=== PATIENT | female | born 1945 | race Caucasian/White ===

== ENCOUNTER 2016-11-05 18:10 | Inpatient (IN) | payer OTHER ==
[~2016-11-05] VITALS: Ht 177.8 cm; Wt 68.0 kg
[2016-11-05 18:10] VITALS: BP 103/61; PULSE 92; RESP 19; TEMP 98.2; O2SAT 92
[~2016-11-05 18:10] MED LIST: IPRA12.94 INH; LEVA15HF5 INH; TIOT18CA3 IH
[2016-11-05] MEDS ORDERED: ALBUTEROL SULFATE 0.083% 2.5 MG/3 ML VIAL.NEB INH PRN (18:30)
[2016-11-05] MEDS ORDERED: LEVOFLOXACIN 500 MG/D5W 100 ML IV ONE (18:30)
[2016-11-05] MEDS ORDERED: IPRATROPIUM BROM 0.5 MG/2.5 ML VIAL.NEB (ATROVENT) INH ONE (18:30)
[2016-11-05] MEDS ORDERED: methylPREDNISolone SOD SUCC/PF 62.5 MG/ML VIAL IVP ONE (18:30)
[2016-11-05 18:54] LABS: BASOPHILS # (AUTO) 0.2 K/uL (0.0-0.2); BASOPHILS % (AUTO) 2.3 % (0.0-2.0); EOSINOPHILS # (AUTO) 0.1 K/uL (0.0-0.4); EOSINOPHILS % (AUTO) 0.7 % (0.0-4.0); HEMATOCRIT 40.7 % (36-48); HEMOGLOBIN 13.5 g/dL (12.0-16.0); LYMPHOCYTES % (AUTO) 12.6 % (20.5-51.5); MEAN CORPUSCULAR HEMOGLOBIN 31 pg (27-31); MEAN CORPUSCULAR HGB CONC 33 % (32-36); MEAN CORPUSCULAR VOLUME 92 fL (79.0-98.0); MONOCYTES # (AUTO) 0.7 K/uL (0.0-1.0); MONOCYTES % (AUTO) 9.7 % (1.7-9.3); NEUTROPHILS # (AUTO) 5.6 K/uL (1.8-7.7); NEUTROPHILS % (AUTO) 74.7 % (40.0-70.0); PLATELET COUNT (AUTO) 420 K/uL (130-430); RED BLOOD CELL COUNT(AUTO) 4.41 MIL/uL (4.2-6.2); RED CELL DISTRIBUTION WIDTH 13.5 % (9.0-15.0); WHITE BLOOD COUNT (AUTO) 7.6 K/uL (4.8-10.8)
[2016-11-05 18:58] LABS: CALCIUM 8.4 mg/dL (8.4-11.0); CHLORIDE 94 mmol/L (98-107); CREATININE 0.61 mg/dL (0.55-1.30); GLUCOSE 131 mg/dL (70-99); POTASSIUM 4.2 mmol/L (3.5-5.1); SODIUM SERUM 133 mmol/L (136-145); UREA NITROGEN, BLOOD 8 mg/dL (8-21)
[2016-11-05 19:00] LABS: ANION GAP < 3 (5-15); INR 0.9 (0.8-1.2); PROTHROMBIN TIME 10.2 SECS (9.5-12.5)
[2016-11-05 19:03] LABS: ALANINE AMINOTRANSFERASE 26 U/L (12-78); ALBUMIN 2.8 g/dL (3.4-4.8); ASPARTATE AMINOTRANSFERASE 22 U/L (10-37); TOTAL BILIRUBIN 0.2 mg/dL (0.0-1.0); TOTAL PROTEIN, SERUM 7.1 g/dL (6.4-8.3)
[2016-11-05] MEDS: ALBUTEROL SULFATE 0.083% 2.5 MG/3 ML VIAL.NEB INH SCH ×2 (19:23→22:00)
[2016-11-05 20:21] LABS: BILIRUBIN,URINE NEGATIVE (NEGATIVE); BLOOD, URINE NEGATIVE (NEGATIVE); CLARITY/URINE CLEAR (CLEAR); COLOR,URINE YELLOW (YELLOW); GLUCOSE,URINE NEGATIVE (NEGATIVE); KETONES,URINE NEGATIVE (NEGATIVE); NITRITE, URINE NEGATIVE (NEGATIVE); PH,URINE 8.5 (5.0-8.0); PROTEIN URINE NEGATIVE (NEGATIVE); UROBILINOGEN,URINE 0.2 (0.2-1.0)
[2016-11-05 20:30] LABS: LEUKOCYTE ESTERASE ,URINE TRACE (NEGATIVE)
[2016-11-05] MEDS ORDERED: PREDNISONE 20 MG TABLET PO ONE (20:30)
[2016-11-05 20:32] LABS: BACTERIA,URINE FEW /HPF (None Seen); MUCUS,URINE None Seen /LPF (None Seen); RBC,URINE NONE SEEN /HPF (0-3)
[2016-11-05] MEDS ORDERED: DIPHENHYDRAMINE INJ 50 MG/ML VIAL IVP ONE (20:45)
[2016-11-05] MEDS ORDERED: ONDANSETRON HCL 4 MG/2 ML VIAL IVP ONE (21:30)
[2016-11-05 21:39] LABS: BLOOD GAS PH 7.414 (7.350-7.450)
[2016-11-05 21:41] LABS: ABG TOTAL HEMOGLOBIN 14.7 G/dL (12.0-18.0); BLOOD GAS BASE EXCESS 8.9 mmol/L (-3.0-3.0); BLOOD GAS COHb% 1.1 % (0.5-1.5); BLOOD GAS HHB 6.7 % (0.0-6.0)
[2016-11-05] MEDS ORDERED: LEVALBUTEROL Tartrate 15 GM HFA. 45 mCg/Actuation INH PRN (22:00)
[2016-11-05 22:42] VITALS: BP 122/64; PULSE 102; RESP 16; TEMP 97.8; O2SAT 90
[2016-11-05] MEDS ORDERED: ALBUTEROL SULFATE 0.083% 2.5 MG/3 ML VIAL.NEB INH SCH (23:00)
[2016-11-05] MEDS ORDERED: LEVALBUTEROL HCL 0.63 MG/3 ML VIAL.NEB INH SCH (23:00)
[2016-11-05] MEDS: methylPREDNISolone SOD SUCC 40 MG/ML VIAL IVP SCH (23:58)
[2016-11-06] VITALS (7 sets, daily range): BP systolic 129–152; BP diastolic 68–82; PULSE 88–102; RESP 18–22; TEMP 97.9–99; O2SAT 83–99
[2016-11-06 05:42] LABS: HEMATOCRIT 40.5 % (36-48); HEMOGLOBIN 13.4 g/dL (12.0-16.0); LYMPHOCYTES # (AUTO) 0.2 K/uL (1.0-5.5); LYMPHOCYTES % (AUTO) 5.3 % (20.5-51.5); MEAN CORPUSCULAR HEMOGLOBIN 31 pg (27-31); MEAN CORPUSCULAR HGB CONC 33 % (32-36); MEAN CORPUSCULAR VOLUME 93 fL (79.0-98.0); NEUTROPHILS # (AUTO) 4.2 K/uL (1.8-7.7); NEUTROPHILS % (AUTO) 93.7 % (40.0-70.0); PLATELET COUNT (AUTO) 408 K/uL (130-430); RED BLOOD CELL COUNT(AUTO) 4.36 MIL/uL (4.2-6.2); RED CELL DISTRIBUTION WIDTH 13.6 % (9.0-15.0); WHITE BLOOD COUNT (AUTO) 4.4 K/uL (4.8-10.8)
[2016-11-06 05:58] LABS: ALANINE AMINOTRANSFERASE 26 U/L (12-78); ALBUMIN 2.6 g/dL (3.4-4.8); ANION GAP 2 (5-15); ASPARTATE AMINOTRANSFERASE 19 U/L (10-37); CALCIUM 8.6 mg/dL (8.4-11.0); CHLORIDE 95 mmol/L (98-107); GLUCOSE 197 mg/dL (70-99); POTASSIUM 4.3 mmol/L (3.5-5.1); SODIUM SERUM 135 mmol/L (136-145); TOTAL BILIRUBIN 0.2 mg/dL (0.0-1.0); TOTAL PROTEIN, SERUM 7.1 g/dL (6.4-8.3); UREA NITROGEN, BLOOD 6 mg/dL (8-21)
[2016-11-06] MEDS: methylPREDNISolone SOD SUCC 40 MG/ML VIAL IVP SCH ×2 (06:35→12:15)
[2016-11-06] MEDS: IPRATROPIUM BROM 0.5 MG/2.5 ML VIAL.NEB (ATROVENT) INH SCH ×5 (07:15→22:18)
[2016-11-06] MEDS ORDERED: TIOTROPIUM BROMIDE 18 mcg/INHALATION (CAPSULE) IH SCH (09:00)
[2016-11-06] MEDS ORDERED: DIPHENHYDRAMINE INJ 50 MG/ML VIAL ONE (10:49)
[2016-11-06] MEDS ORDERED: ALBUTEROL SULFATE 0.083% 2.5 MG/3 ML VIAL.NEB INH SCH (11:15)
[2016-11-06] MEDS ORDERED: ALBUTEROL SULFATE 0.083% 2.5 MG/3 ML VIAL.NEB INH PRN (11:15)
[2016-11-06] MEDS ORDERED: IPRATROPIUM BROM 0.5 MG/2.5 ML VIAL.NEB (ATROVENT) INH PRN (11:15)
[2016-11-06] MEDS ORDERED: IPRATROPIUM BROM 0.5 MG/2.5 ML VIAL.NEB (ATROVENT) INH SCH (11:15)
[2016-11-06] MEDS: DIPHENHYDRAMINE INJ 50 MG/ML VIAL IVP SCH (12:15)
[2016-11-06] MEDS ORDERED: THYROID 30 MG TABLET PO ONE (12:15)
[2016-11-06 12:20] LABS: BLOOD GAS PH 7.403 (7.350-7.450)
[2016-11-06 12:21] LABS: ABG TOTAL HEMOGLOBIN 14.4 G/dL (12.0-18.0)
[2016-11-06 12:22] LABS: BLOOD GAS COHb% 0.7 % (0.5-1.5); BLOOD GAS HHB 14.9 % (0.0-6.0); BLOOD O2Hb% 83.9 % (94.0-97.0)
[2016-11-06] MEDS: LEVOFLOXACIN 500 MG/D5W 100 ML IV SCH (13:11)
[2016-11-06] MEDS: ALBUTEROL SULFATE 0.083% 2.5 MG/3 ML VIAL.NEB INH SCH ×3 (15:19→22:18)
[2016-11-06] MEDS: MAG-AL HYDROX/SIMETH 30 ML UDC PO PRN (15:50)
[2016-11-06] MEDS: SUCRALFATE 1 GM TABLET PO SCH ×2 (17:32→21:01)
[2016-11-06] MEDS ORDERED: ONDANSETRON HCL 4 MG/2 ML VIAL IVP ONE (20:15)
[2016-11-06] MEDS: PANTOPRAZOLE SODIUM 40 MG TAB PO SCH (20:29)
[2016-11-06] MEDS: LACTOBACILLUS RHAMNOSUS GG 1 CAP CAPSULE PO SCH (21:01)
[2016-11-07] MEDS: MAG-AL HYDROX/SIMETH 30 ML UDC PO PRN ×3 (00:02→23:54)
[2016-11-07] MEDS: HYDROcodone/ACETAMIN 5-325 MG TAB (NORCO/ VICODIN) PO PRN ×2 (00:31→15:19)
[2016-11-07 01:10] VITALS: BP 139/60; PULSE 89; RESP 20; TEMP 98.8; O2SAT 90
[2016-11-07] MEDS: methylPREDNISolone SOD SUCC 40 MG/ML VIAL IVP SCH ×3 (01:42→12:09)
[2016-11-07] MEDS: ACETAMINOPHEN 500 MG TABLET PO PRN (02:35)
[2016-11-07] MEDS: ALBUTEROL SULFATE 0.083% 2.5 MG/3 ML VIAL.NEB INH SCH ×6 (03:31→23:15)
[2016-11-07] MEDS: IPRATROPIUM BROM 0.5 MG/2.5 ML VIAL.NEB (ATROVENT) INH SCH ×6 (03:32→23:15)
[2016-11-07 04:33] VITALS: BP 132/63; PULSE 83; RESP 20; TEMP 98.8; O2SAT 98
[2016-11-07] MEDS: THYROID 30 MG TABLET PO SCH ×2 (06:09→06:14)
[2016-11-07] MEDS: SUCRALFATE 1 GM TABLET PO SCH ×4 (06:10→21:13)
[2016-11-07 06:44] LABS: BASOPHILS % (AUTO) 0.1 % (0.0-2.0); HEMATOCRIT 39.3 % (36-48); LYMPHOCYTES # (AUTO) 0.6 K/uL (1.0-5.5); LYMPHOCYTES % (AUTO) 6.2 % (20.5-51.5); MEAN CORPUSCULAR HEMOGLOBIN 31 pg (27-31); MEAN CORPUSCULAR HGB CONC 33 % (32-36); MEAN CORPUSCULAR VOLUME 93 fL (79.0-98.0); MONOCYTES # (AUTO) 0.6 K/uL (0.0-1.0); MONOCYTES % (AUTO) 5.7 % (1.7-9.3); NEUTROPHILS # (AUTO) 8.7 K/uL (1.8-7.7); PLATELET COUNT (AUTO) 445 K/uL (130-430); RED BLOOD CELL COUNT(AUTO) 4.22 MIL/uL (4.2-6.2); RED CELL DISTRIBUTION WIDTH 13.2 % (9.0-15.0); WHITE BLOOD COUNT (AUTO) 9.9 K/uL (4.8-10.8)
[2016-11-07 07:22] LABS: ANION GAP 2 (5-15); CALCIUM 8.8 mg/dL (8.4-11.0); CHLORIDE 97 mmol/L (98-107); CREATININE 0.65 mg/dL (0.55-1.30); FREE T4 (FREE THYROXINE) 0.4 ng/dL (0.6-1.6); GLUCOSE 137 mg/dL (70-99); POTASSIUM 4.2 mmol/L (3.5-5.1); SODIUM SERUM 139 mmol/L (136-145); THYROID STIMULATING HORMONE 0.69 uIu/mL (0.34-4.82); UREA NITROGEN, BLOOD 11 mg/dL (8-21)
[2016-11-07 07:30] VITALS: BP 140/74; PULSE 88; RESP 16; TEMP 98.6; O2SAT 98
[2016-11-07] MEDS: PANTOPRAZOLE SODIUM 40 MG TAB PO SCH ×2 (08:27→21:00)
[2016-11-07] MEDS: LACTOBACILLUS RHAMNOSUS GG 1 CAP CAPSULE PO SCH ×2 (08:28→21:00)
[2016-11-07] MEDS: DIPHENHYDRAMINE INJ 50 MG/ML VIAL IVP SCH (08:29)
[2016-11-07] MEDS: ALBUTEROL SULFATE 0.083% 2.5 MG/3 ML VIAL.NEB INH PRN (09:49)
[2016-11-07 12:02] VITALS: BP 113/75; PULSE 65; RESP 20; TEMP 97.1; O2SAT 97
[2016-11-07] MEDS: LEVOFLOXACIN 500 MG/D5W 100 ML IV SCH (12:10)
[2016-11-07] MEDS ORDERED: DIPHENHYDRAMINE INJ 50 MG/ML VIAL IVP ONE (12:45)
[2016-11-07] MEDS: ONDANSETRON HCL 4 MG/2 ML VIAL IVP PRN (14:51)
[2016-11-07] MEDS ORDERED: BACLOFEN 10 MG TABLET PO PRN (16:30)
[2016-11-07 16:31] VITALS: BP 141/64; PULSE 92; RESP 22; TEMP 98.3; O2SAT 90
[2016-11-07] MEDS: methylPREDNISolone SOD SUCC/PF 62.5 MG/ML VIAL IVP SCH (17:48)
[2016-11-07 20:00] VITALS: BP 146/73; PULSE 90; RESP 20; TEMP 97.3; O2SAT 87
[2016-11-08] MEDS: HYDROcodone/ACETAMIN 5-325 MG TAB (NORCO/ VICODIN) PO PRN ×2 (00:23→12:35)
[2016-11-08] MEDS: IPRATROPIUM BROM 0.5 MG/2.5 ML VIAL.NEB (ATROVENT) INH SCH ×5 (03:30→19:47)
[2016-11-08] MEDS: ALBUTEROL SULFATE 0.083% 2.5 MG/3 ML VIAL.NEB INH SCH ×5 (03:30→19:47)
[2016-11-08] MEDS: ACETAMINOPHEN 500 MG TABLET PO PRN (04:02)
[2016-11-08 05:52] VITALS: BP 146/79; PULSE 91; RESP 22; TEMP 98; O2SAT 87
[2016-11-08] MEDS: methylPREDNISolone SOD SUCC/PF 62.5 MG/ML VIAL IVP SCH ×5 (06:00→23:20)
[2016-11-08] MEDS: MAG-AL HYDROX/SIMETH 30 ML UDC PO PRN ×2 (06:25→12:35)
[2016-11-08] MEDS: SUCRALFATE 1 GM TABLET PO SCH ×4 (06:27→20:40)
[2016-11-08] MEDS: THYROID 30 MG TABLET PO SCH (06:28)
[2016-11-08 08:00] VITALS: BP 146/68; PULSE 97; RESP 18; TEMP 98.8; O2SAT 88
[2016-11-08] MEDS: PANTOPRAZOLE SODIUM 40 MG TAB PO SCH ×2 (08:36→20:40)
[2016-11-08] MEDS: LACTOBACILLUS RHAMNOSUS GG 1 CAP CAPSULE PO SCH ×2 (08:37→20:40)
[2016-11-08] MEDS: ALBUTEROL SULFATE 0.083% 2.5 MG/3 ML VIAL.NEB INH PRN ×3 (09:52→17:28)
[2016-11-08 10:00] VITALS: BP 146/79; PULSE 98
[2016-11-08] MEDS: DIPHENHYDRAMINE INJ 50 MG/ML VIAL IVP SCH (11:30)
[2016-11-08 12:00] VITALS: BP 123/58; PULSE 102; RESP 20; TEMP 97.4; O2SAT 93
[2016-11-08] MEDS: LEVOFLOXACIN 500 MG/D5W 100 ML IV SCH (12:00)
[2016-11-08] MEDS: ONDANSETRON HCL 4 MG/2 ML VIAL IVP PRN (13:26)
[2016-11-08 16:20] VITALS: Ht 177.8 cm; Wt 68.0 kg
[2016-11-08 18:03] VITALS: BP 122/56; PULSE 100; RESP 18; TEMP 97; O2SAT 93
[2016-11-08 20:00] VITALS: BP 127/60; PULSE 97; RESP 18; TEMP 97.5; O2SAT 92
[2016-11-09] MEDS: HYDROcodone/ACETAMIN 5-325 MG TAB (NORCO/ VICODIN) PO PRN ×3 (00:43→14:41)
[2016-11-09] MEDS: IPRATROPIUM BROM 0.5 MG/2.5 ML VIAL.NEB (ATROVENT) INH SCH ×6 (02:51→23:26)
[2016-11-09] MEDS: ALBUTEROL SULFATE 0.083% 2.5 MG/3 ML VIAL.NEB INH SCH ×6 (02:51→23:26)
[2016-11-09 04:25] VITALS: BP 131/90; PULSE 76; RESP 20; TEMP 99; O2SAT 90
[2016-11-09] MEDS: methylPREDNISolone SOD SUCC/PF 62.5 MG/ML VIAL IVP SCH ×3 (06:00→18:00)
[2016-11-09] MEDS: SUCRALFATE 1 GM TABLET PO SCH ×4 (06:06→23:02)
[2016-11-09] MEDS ORDERED: THYROID 30 MG TABLET PO SCH (07:00)
[2016-11-09 08:00] VITALS: BP 146/75; PULSE 100; RESP 18; TEMP 98.5; O2SAT 90
[2016-11-09] MEDS: PANTOPRAZOLE SODIUM 40 MG TAB PO SCH ×2 (12:05→21:00)
[2016-11-09] MEDS: LACTOBACILLUS RHAMNOSUS GG 1 CAP CAPSULE PO SCH ×2 (12:07→21:00)
[2016-11-09] MEDS: LEVOFLOXACIN 500 MG/D5W 100 ML IV SCH (12:11)
[2016-11-09] MEDS: DIPHENHYDRAMINE INJ 50 MG/ML VIAL IVP SCH (12:11)
[2016-11-09 12:13] VITALS: BP 128/87; PULSE 99; RESP 19; TEMP 96.7; O2SAT 91
[2016-11-09] MEDS: MAG-AL HYDROX/SIMETH 30 ML UDC PO PRN ×2 (14:35→23:11)
[2016-11-09 18:17] VITALS: BP 125/85; PULSE 94; RESP 20; TEMP 96.8; O2SAT 91
[2016-11-09 20:00] VITALS: BP 112/78; PULSE 75; RESP 16; TEMP 98.3; O2SAT 93
[2016-11-10 00:15] VITALS: BP 148/70; PULSE 98; RESP 18; TEMP 97.6; O2SAT 91
[2016-11-10] MEDS: HYDROcodone/ACETAMIN 5-325 MG TAB (NORCO/ VICODIN) PO PRN ×4 (02:37→23:26)
[2016-11-10] MEDS: ALBUTEROL SULFATE 0.083% 2.5 MG/3 ML VIAL.NEB INH SCH ×6 (03:00→23:28)
[2016-11-10] MEDS: IPRATROPIUM BROM 0.5 MG/2.5 ML VIAL.NEB (ATROVENT) INH SCH ×6 (03:00→23:28)
[2016-11-10 04:27] VITALS: BP 150/83; PULSE 100; RESP 20; TEMP 97.5; O2SAT 92
[2016-11-10] MEDS: methylPREDNISolone SOD SUCC 40 MG/ML VIAL IVP SCH ×5 (06:00→18:16)
[2016-11-10] MEDS: THYROID 30 MG TABLET PO SCH (06:23)
[2016-11-10] MEDS: SUCRALFATE 1 GM TABLET PO SCH ×4 (06:27→20:05)
[2016-11-10] MEDS: ACETAMINOPHEN 500 MG TABLET PO PRN ×2 (06:28→11:34)
[2016-11-10] MEDS: LACTOBACILLUS RHAMNOSUS GG 1 CAP CAPSULE PO SCH ×2 (08:57→20:06)
[2016-11-10] MEDS: PANTOPRAZOLE SODIUM 40 MG TAB PO SCH ×2 (08:57→20:06)
[2016-11-10] MEDS: DIPHENHYDRAMINE INJ 50 MG/ML VIAL IVP SCH (11:34)
[2016-11-10] MEDS: LEVOFLOXACIN 500 MG/D5W 100 ML IV SCH (11:35)
[2016-11-10 12:14] VITALS: BP 150/82; PULSE 99; RESP 20; TEMP 98.6; O2SAT 86
[2016-11-10] MEDS: MAG-AL HYDROX/SIMETH 30 ML UDC PO PRN (14:25)
[2016-11-10 16:59] VITALS: BP 138/72; PULSE 93; RESP 18; TEMP 96.5; O2SAT 90
[2016-11-10] MEDS: ALBUTEROL SULFATE 0.083% 2.5 MG/3 ML VIAL.NEB INH PRN (17:38)
[2016-11-10 19:45] VITALS: BP 142/76; PULSE 87; RESP 18; TEMP 97.9; O2SAT 93
[2016-11-10] MEDS: ONDANSETRON HCL 4 MG/2 ML VIAL IVP PRN (20:12)
[2016-11-11 00:36] VITALS: BP 137/84; PULSE 98; RESP 19; TEMP 98.9; O2SAT 88
[2016-11-11] MEDS: ALBUTEROL SULFATE 0.083% 2.5 MG/3 ML VIAL.NEB INH SCH ×6 (03:55→23:00)
[2016-11-11] MEDS: IPRATROPIUM BROM 0.5 MG/2.5 ML VIAL.NEB (ATROVENT) INH SCH ×6 (03:55→23:00)
[2016-11-11 04:43] VITALS: BP 129/66; PULSE 84; RESP 16; TEMP 98.6; O2SAT 88
[2016-11-11] MEDS: methylPREDNISolone SOD SUCC 40 MG/ML VIAL IVP SCH ×5 (06:00→23:58)
[2016-11-11] MEDS: SUCRALFATE 1 GM TABLET PO SCH ×4 (07:00→21:00)
[2016-11-11] MEDS ORDERED: THYROID 30 MG TABLET PO SCH (07:00)
[2016-11-11] MEDS: LACTOBACILLUS RHAMNOSUS GG 1 CAP CAPSULE PO SCH ×2 (09:00→21:00)
[2016-11-11] MEDS: PANTOPRAZOLE SODIUM 40 MG TAB PO SCH ×2 (09:00→21:00)
[2016-11-11] MEDS: ONDANSETRON HCL 4 MG/2 ML VIAL IVP PRN (09:02)
[2016-11-11] MEDS: HYDROcodone/ACETAMIN 5-325 MG TAB (NORCO/ VICODIN) PO PRN ×2 (11:15→22:42)
[2016-11-11] MEDS: DIPHENHYDRAMINE INJ 50 MG/ML VIAL IVP SCH (11:15)
[2016-11-11 12:00] VITALS: BP 134/72; PULSE 102; RESP 18; TEMP 97.8; O2SAT 93
[2016-11-11] MEDS: LEVOFLOXACIN 500 MG/D5W 100 ML IV SCH (12:00)
[2016-11-11] MEDS: ACETAMINOPHEN 500 MG TABLET PO PRN (12:57)
[2016-11-11] MEDS: ALBUTEROL SULFATE 0.083% 2.5 MG/3 ML VIAL.NEB INH PRN (14:03)
[2016-11-11 16:00] VITALS: BP 131/64; PULSE 90; RESP 18; TEMP 98.7; O2SAT 96
[2016-11-11 16:50] VITALS: BP 134/72; PULSE 102
[2016-11-11 19:45] VITALS: BP 145/84; PULSE 98; RESP 18; TEMP 98.4; O2SAT 92
[2016-11-11] MEDS: MAG-AL HYDROX/SIMETH 30 ML UDC PO PRN (22:44)
[2016-11-12 00:06] VITALS: BP 115/76; PULSE 98; RESP 19; TEMP 98.7; O2SAT 90
[2016-11-12] MEDS: ALBUTEROL SULFATE 0.083% 2.5 MG/3 ML VIAL.NEB INH SCH ×6 (03:23→23:54)
[2016-11-12] MEDS: IPRATROPIUM BROM 0.5 MG/2.5 ML VIAL.NEB (ATROVENT) INH SCH ×6 (03:23→23:54)
[2016-11-12 04:12] VITALS: BP 118/82; PULSE 86; RESP 18; TEMP 97.9; O2SAT 96
[2016-11-12] MEDS: ALBUTEROL SULFATE 0.083% 2.5 MG/3 ML VIAL.NEB INH PRN (05:38)
[2016-11-12] MEDS: THYROID 30 MG TABLET PO SCH (07:00)
[2016-11-12] MEDS: SUCRALFATE 1 GM TABLET PO SCH ×4 (07:00→21:00)
[2016-11-12 08:00] VITALS: BP 134/68; PULSE 103; RESP 19; TEMP 98; O2SAT 87
[2016-11-12] MEDS: PANTOPRAZOLE SODIUM 40 MG TAB PO SCH ×2 (08:24→21:00)
[2016-11-12] MEDS: HYDROcodone/ACETAMIN 5-325 MG TAB (NORCO/ VICODIN) PO PRN ×2 (08:24→16:17)
[2016-11-12] MEDS: LACTOBACILLUS RHAMNOSUS GG 1 CAP CAPSULE PO SCH ×3 (08:25→21:00)
[2016-11-12] MEDS: DIPHENHYDRAMINE INJ 50 MG/ML VIAL IVP SCH (11:21)
[2016-11-12] MEDS: LEVOFLOXACIN 500 MG/D5W 100 ML IV SCH (12:00)
[2016-11-12] MEDS: methylPREDNISolone SOD SUCC 40 MG/ML VIAL IVP SCH ×2 (12:00→22:00)
[2016-11-12 12:05] VITALS: BP 134/73; PULSE 98; RESP 18; TEMP 98; O2SAT 93
[2016-11-12] MEDS: MAG-AL HYDROX/SIMETH 30 ML UDC PO PRN ×2 (13:53→20:59)
[2016-11-12] MEDS: ONDANSETRON HCL 4 MG/2 ML VIAL IVP PRN ×2 (13:53→23:50)
[2016-11-12 16:42] VITALS: BP 140/75; PULSE 92; RESP 18; TEMP 97.9; O2SAT 92
[2016-11-12 20:00] VITALS: BP 126/65; PULSE 99; RESP 18; TEMP 98.1; O2SAT 90
[2016-11-13 00:16] VITALS: BP 138/72; PULSE 98; RESP 16; TEMP 98.6; O2SAT 98
[2016-11-13] MEDS: MAG-AL HYDROX/SIMETH 30 ML UDC PO PRN (04:10)
[2016-11-13] MEDS: ONDANSETRON HCL 4 MG/2 ML VIAL IVP PRN ×2 (04:16→11:01)
[2016-11-13 04:17] VITALS: BP 128/68; PULSE 97; RESP 17; TEMP 98.3; O2SAT 96
[2016-11-13] MEDS: ALBUTEROL SULFATE 0.083% 2.5 MG/3 ML VIAL.NEB INH SCH ×6 (04:25→23:00)
[2016-11-13] MEDS: IPRATROPIUM BROM 0.5 MG/2.5 ML VIAL.NEB (ATROVENT) INH SCH ×6 (04:25→23:00)
[2016-11-13] MEDS: methylPREDNISolone SOD SUCC 40 MG/ML VIAL IVP SCH ×3 (06:00→22:00)
[2016-11-13] MEDS: THYROID 30 MG TABLET PO SCH (07:00)
[2016-11-13] MEDS: SUCRALFATE 1 GM TABLET PO SCH ×4 (07:00→20:32)
[2016-11-13 08:00] VITALS: BP 117/61; PULSE 91; RESP 17; TEMP 98.5; O2SAT 91
[2016-11-13] MEDS: LACTOBACILLUS RHAMNOSUS GG 1 CAP CAPSULE PO SCH ×2 (09:00→20:32)
[2016-11-13] MEDS: ALBUTEROL SULFATE 0.083% 2.5 MG/3 ML VIAL.NEB INH PRN ×2 (09:41→13:07)
[2016-11-13] MEDS: PANTOPRAZOLE SODIUM 40 MG TAB PO SCH ×2 (09:44→20:28)
[2016-11-13] MEDS: DIPHENHYDRAMINE INJ 50 MG/ML VIAL IVP SCH (11:49)
[2016-11-13 12:43] VITALS: BP 133/66; PULSE 100; RESP 19; TEMP 99.1; O2SAT 88
[2016-11-13] MEDS: HYDROcodone/ACETAMIN 5-325 MG TAB (NORCO/ VICODIN) PO PRN ×2 (13:34→20:28)
[2016-11-13 18:25] VITALS: BP 136/76; PULSE 95; RESP 18; TEMP 97.6; O2SAT 91
[2016-11-13 19:45] VITALS: BP 127/62; PULSE 94; RESP 20; TEMP 97.2; O2SAT 91
[2016-11-13] MEDS ORDERED: LEVOFLOXACIN 500 MG/D5W 100 ML IV SCH (20:00)
[2016-11-14] MEDS: ALBUTEROL SULFATE 0.083% 2.5 MG/3 ML VIAL.NEB INH PRN ×2 (01:14→09:41)
[2016-11-14 01:19] VITALS: BP 118/55; PULSE 84; RESP 20; TEMP 98.6; O2SAT 88
[2016-11-14] MEDS: ALBUTEROL SULFATE 0.083% 2.5 MG/3 ML VIAL.NEB INH SCH ×5 (03:36→18:36)
[2016-11-14] MEDS: IPRATROPIUM BROM 0.5 MG/2.5 ML VIAL.NEB (ATROVENT) INH SCH ×5 (03:36→18:36)
[2016-11-14 04:09] VITALS: BP 124/82; PULSE 86; RESP 22; TEMP 98.8; O2SAT 90
[2016-11-14] MEDS: methylPREDNISolone SOD SUCC 40 MG/ML VIAL IVP SCH ×2 (06:00→13:25)
[2016-11-14] MEDS: THYROID 30 MG TABLET PO SCH (06:14)
[2016-11-14] MEDS: HYDROcodone/ACETAMIN 5-325 MG TAB (NORCO/ VICODIN) PO PRN (06:57)
[2016-11-14] MEDS: SUCRALFATE 1 GM TABLET PO SCH ×3 (07:00→17:51)
[2016-11-14 07:05] VITALS: PULSE 54
[2016-11-14] MEDS: PANTOPRAZOLE SODIUM 40 MG TAB PO SCH ×2 (09:00→10:30)
[2016-11-14] MEDS: LACTOBACILLUS RHAMNOSUS GG 1 CAP CAPSULE PO SCH ×2 (09:00→10:30)
[2016-11-14] MEDS: ACETAMINOPHEN 500 MG TABLET PO PRN (10:44)
[2016-11-14] MEDS: DIPHENHYDRAMINE INJ 50 MG/ML VIAL IVP SCH (11:30)
[2016-11-14 11:53] VITALS: BP 130/78; PULSE 99; RESP 19; TEMP 97.9; O2SAT 92
[2016-11-14 16:40] VITALS: BP 151/78; PULSE 88; RESP 19; TEMP 97.9; O2SAT 92
[2016-11-14 18:34] VITALS: BP 151/78; PULSE 88; RESP 19; TEMP 97.9; O2SAT 92
== END 2016-11-14 20:00 | DRG 193 ==
LOC: SED 18:10 → SMU 21:51 → STU 11-06 18:00 → SMU 11-08 20:56
PROVIDERS: ADMIT Family Medicine; ATTEND Family Medicine
DX: J18.9 Pneumonia, unspecified organism (principal); J96.20 Acute and chronic respiratory failure, unspecified whether with hypoxia or hypercapnia; E43 Unspecified severe protein-calorie malnutrition; J44.0 Chronic obstructive pulmonary disease with (acute) lower respiratory infection; J44.1 Chronic obstructive pulmonary disease with (acute) exacerbation; E03.9 Hypothyroidism, unspecified; K21.9 Gastro-esophageal reflux disease without esophagitis; J20.9 Acute bronchitis, unspecified; G89.29 Other chronic pain; T38.0X5A Adverse effect of glucocorticoids and synthetic analogues, initial encounter; F17.200 Nicotine dependence, unspecified, uncomplicated; M81.0 Age-related osteoporosis without current pathological fracture; M54.9 Dorsalgia, unspecified; R73.9 Hyperglycemia, unspecified; Z88.0 Allergy status to penicillin; Z79.899 Other long term (current) drug therapy; Z68.21 Body mass index [BMI] 21.0-21.9, adult; F41.9 Anxiety disorder, unspecified
CPT/HCPCS: 36415; 36600; 71010; 80048; 80053; 81000-TC; 82803-TC; 82962; 83605; 83880; 84439; 84443-TC; 84484; 85025; 85610-TC; 86710; 87040-TC; 87081; 93005; 94640; 94668; 94760; 96365; 96375; 99285; J1030; J1200; J1956; J2405; J2930; J7060; J7512